=== PATIENT | female | born 1960 | race Caucasian/White ===

== ENCOUNTER → 2025-07-28 | Outpatient (CLI) | payer MEDICARE, BC, SELFPAY ==
--- NOTE | 2025-07-28 12:21 | XR_ITS ---
EXAMINATION: Lumbar spine 3 views TECHNIQUE: AP lateral, lateral lower lumbar spine 3 views Date and time: July 28, 2025, 1306 hours INDICATIONS: Low back pain beginning 1 month ago FINDINGS: Lumbar dextroscoliosis 15 degrees Lumbar fusion and transpedicular L5-S1 with satisfactory alignment Moderate degenerative disc disease above the fusion site especially L4-L5 No acute fracture IMPRESSION: Lumbar fusion L5-S1 with satisfactory alignment Moderate degenerative disc disease above the fusion site, especially L4-L5.
[2025-07-28 13:57] LABS: Basophils # (Auto) 0.0 Thou/mm3 (0.0-0.2); Basophils % (Auto) 1 % (0-2.5); Eosinophils # (Auto) 0.2 Thou/mm3 (0.0-0.5); Eosinophils % (Auto) 2 % (0-10); Hematocrit 33.6 % (36.0-46.0); Hemoglobin 10.9 g/dL (12.0-16.0); Immature Granulocytes Auto 0.02 Thou/mm3 (0.00-0.00); Lymphocytes # (Auto) 1.8 Thou/mm3 (1.0-4.8); Lymphocytes % (Auto) 27 % (10-50); Mean Corpuscular HGB Conc 32.4 g/dl (31.0-37.0); Mean Corpuscular Hemoglobin 30.6 pg (25.0-35.0); Mean Corpuscular Volume 94 fL (80-100); Monocytes # (Auto) 0.6 Thou/mm3 (0.0-0.8); Monocytes % (Auto) 9 % (0-12); Neutrophils # (Auto) 4.1 Thou/mm3 (1.8-7.7); Neutrophils % (Auto) 61 % (37-80); Nucleated Red Blood Cell # 0.00 Thou/mm3 (0.00-0.00); Nucleated Red Blood Cell % 0 /100 WBC (0); Platelet Count 231 Thou/mm3 (140-440); RDW Standard Deviation 47.9 fL (36.4-46.3); Red Blood Count 3.56 Miln/mm3 (4.00-5.20); White Blood Count 6.7 Thou/mm3 (3.6-11.0)
[2025-07-28 14:29] LABS: Alanine Aminotransferase 16 U/L (10-49); Albumin, Serum 4.3 gm/dL (3.4-4.8); Albumin/Globulin Ratio 1.8 (1.2-2.2); Alkaline Phosphatase 73 U/L (46-116); Anion Gap 10 (7-16); Aspartate Amino Transferase 19 U/L (0-34); BUN/Creatinine Ratio 20 Ratio (12-20); Bilirubin,Total 0.6 mg/dL (0.3-1.2); Blood Urea Nitrogen 14 mg/dL (9-23); Calcium 9.5 mg/dL (8.3-10.6); Calcium (Corrected) 9.5 mg/dL (8.5-10.1); Carbon Dioxide 28.5 mMol/L (20.0-31.0); Cardiac Risk Estimate 2.9 RATIO (3.7-5.6); Chloride 108 mMol/L (98-107); Cholesterol 112 mg/dL (132-200); Creatinine (Component) 0.7 mg/dL (0.6-1.3); Free T4 (Free Thyroxine) 1.35 ng/dL (0.89-1.76); Globulin 2.4 gm/dL (2.3-3.5); Glucose 96 mg/dL (74-106); HDL Cholesterol 38 mg/dL (40-60); LDL Cholesterol,Calculated 58 mg/dL (0-130); Osmolality,Calculated 291 (275-295); Potassium 4.6 mMol/L (3.4-5.1); Sodium 146 mMol/L (136-145); Thyroid Stimulating Hormone 1.95 uIU/mL (0.55-4.78); Total Protein 6.7 gm/dL (5.7-8.2); Triglycerides 81 mg/dL (30-150); eGFR > 60 See Note
== END | disposition home or self-care (01) ==
LOC: CDIM 12:13 → COPL 13:17
PROVIDERS: PCP Internal Medicine Hospice and Palliative Medicine; Referring Provider Internal Medicine Hospice and Palliative Medicine; Visit Provider Radiology Diagnostic Radiology
DX: M43.26 Fusion of spine, lumbar region (principal); M51.369 Other intervertebral disc degeneration, lumbar region without mention of lumbar back pain or lower extremity pain; I10 Essential (primary) hypertension; E03.9 Hypothyroidism, unspecified
CPT/HCPCS: 36415; 72100; 80053; 80061; 84439; 84443; 85025

== ENCOUNTER 2025-10-04 16:32 | Inpatient (IN) | payer MEDICARE, BC, SELFPAY ==
[2025-10-04] VITALS (7 sets, daily range): BP systolic 92–167; BP diastolic 57–90; PULSE 77–85; RESP 15–20; TEMP 36.2–36.8; O2SAT 97–100; BMI 41.0
--- NOTE | 2025-10-04 18:19 | EDNOTE_ITS ---
ED SOB =RME/HPI General Chief Complaint: Shortness of Breath/Dyspnea Stated Complaint: SOB, DIZZY, WEAK LEGS, HOLLEY; CHEST PAIN YESTERDAY Time Seen by Provider: 10/04/25 18:20 Arrival date/time: 10/04/25 16:32 RME / HPI RME / HPI Narrative: Dr. Chacon?s Main ED Evaluation: 65yo female with a history of aortic valve replacement (2008), HTN, HLD presents to the ED for a chief complaint of shortness of breath x 2-3 days. Of note, patient has been here ~2 hours prior to my evaluation. Patient states she started having general malaise/weakness, shortness of breath, dizziness, and a headache over the last 2-3 days. Denies any fever, chills, cough, N/V, or any other associated symptoms. Patient does take Coumadin 12.5mg daily. Denies any recent medication changes. Student Truck Driver is Dr. Muñoz. NKA. Related Data Home Medications ?Medication ?Instructions ?Recorded ?Confirmed estropipate 0.75 mg tablet 0.75 mg PO QDAY ##0 4 09/18/19 metoprolol succinate 50 mg 50 mg PO QDAY ##0 06/15/14 09/18/19 tablet,extended release 24 hr (Toprol XL) warfarin 7.5 mg tablet (Coumadin) 12.5 mg PO BID #0 ta bs 06/15/14 09/18/19 furosemide 40 mg tablet 40 mg PO QDAY 09/18/1909/18 losartan 50 mg tablet 50 mg PO QDAY 09/18/1909/18 potassium chloride 10 mEq 10 meq PO QDAY 09/18/190 03/02 tablet,extended release simvastatin 40 mg tablet 40 mg PO QPM 09/18/19 Allergies Allergy/AdvReac Type Severity Reaction Status Date / Time No Known Allergies Allergy Verified 10/04/25 16:35 Review of Systems Review of Systems Systems Reviewed: All systems reviewed, normal except as documented Past Medical History Past Medical History CARDIAC: Positive Cardiac Disorders, Hypercholesterolemia, Congestive Heart Failure, Valvular Heart Disease and Hypertension RESPIRATORY: Negative Chronic Obstructive Pulmonary Disease (COPD) GENITOURINARY: Negative Renal Disease ENDOCRINE: Negative Diabetes Mellitus Type 1 or Diabetes Mellitus Type 2 Surgical History SURGICAL: Positive Valve Replacement Social History SMOKING STATUS: Never smoker ED Exam Narrative Physical exam: Generally patient is alert oriented x 3 in no obvious distress, heart regular rate and rhythm with loud auscultated click at the mechanical heart valve, lungs clear to auscultation equal bilaterally, abdomen is obese soft nontender, rectal exam showed no gross blood melanotic stool guaiac positive. Neurologic exam shows no focal motor deficits with Severo Coma Scale 15, skin is cool pale and dry Course Course Course Narrative: CXR is ordered for determining the etiology of shortness of breath. Quality Measures none Orders Category Date Time Status EKG (ED ONLY) *Do not use* NOW Care 10/04/25 18:34 Completed Transfuse,blood/blood products NOW Care 10/04/25 19:41 Active EKG (ED Only) Stat Exams 10/04/25 18:34 Draft XR chest 1V portable Stat Exams 10/04/25 18:34 Completed BNP [B-Type Natriuretic Peptide] Stat Lab 10/04/25 18:50 Completed CBC Stat Lab 10/04/25 18:50 Completed CMP [Comprehensive Metabolic Panel] Stat Lab 10/04/25 18:50 Completed PT [Prothrombin Time with INR] Stat Lab 10/04/25 18:50 Completed Troponin I Stat Lab 10/04/25 18:50 Completed prbc [Red Blood Cells] Stat Lab 10/04/25 19:41 Ordered prbc [Red Blood Cells] Urgent Lab 10/04/25 19:42 Ordered Vital Signs Vital signs: Vital Signs Temperature 98.3 F 10/04/25 17:16 Pulse Rate 83 10/04/25 17:16 Respiratory Rate 18 10/04/25 17:16 Blood Pressure 92/57 L 10/04/25 17:16 Pulse Oximetry (%) 98 10/04/25 17:16 Oxygen Delivery Method Room Air 10/04/25 17:16 Shortness of Breath / Dyspnea MDM Narrative MDM Narrative:: Scribe Attestation: 10/04/25 Gayla Almonte am scribing for and in the presence of Dr. Chacon. I interpreted all labs. 2 months ago the patient's hemoglobin was 11 and today is 4.0. Patient will be typed and crossed and transfused with 4 units of packed RBCs. INR is 4.2. Patient is on 12.5 mg of Coumadin once a day because of impact chemical heart valve. She is not actively bleeding at this time. Patient will need an EGD while in the hospital here. Troponin is not elevated. There is no electrolyte abnormality. BNP is only slightly elevated. Case was discussed with the hospitalist and the patient required admission to the hospital for further treatment and evaluation. Patient data External records reviewed:: [facility] previous records (Per chart review, patient was seen here on 05/05/23 for leg pain.) Clinical information provided by:: patient Social determinants that could affect healthcare access:: none Patient has the following chronic illnesses:: aortic valve replacement (2008), HTN, HLD How is presenting disease/condition affected by chronic disease/condition?: exacerbated by Evaluation data The following diagnostics were reviewed and interpreted by me:: lab results, radiology exam(s) and EKG tracing(s) Lab and/or radiology exams considered but not ordered:: none Interpretation Summary: [place] [facility] Report Signed Patient: DELVIS MARTINEZ Record#: [id number] Birthdate: 1960 Age/Sex: 65 / F Location: [facility] Attending Dr: Ordering Physician: Maurice Chacon DO Date of Service: 10/04/25 Procedure(s): XR chest 1V portable Accession Number(s): [id number] cc: Bimal Paredes MD; NO PRIMARY/FAMILY,PHYSICIAN; Maurice Chacon DO~ EXAMINATION: AP chest single view TECHNIQUE: AP portable upright chest single view Date and time: October 04, 2025, 1835 hours, comparison July 21, 2020 INDICATIONS: Acute chest pain today. FINDINGS: Mild enlargement cardiac contour Median sternotomy wires. No lobar pneumonia or pulmonary edema. Moderate osteopenia IMPRESSION: No lobar pneumonia or pulmonary edema Dictated By: Bimal Paredes MD Signed By: <Electronically signed by Bimal Paredes MD in OV> 10/04/25 1844 Medications / Prescriptions Medications or Prescriptions considered but not ordered:: none Medication administrations:: see above, if any Consultations Consultation(s) initiated? (list below): Yes Diagnosis Shortness of Breath Differential Diagnosis: other (See MDM) Most likely diagnosis given after review of the tests above:: see clinical impression below Admission Indicated Admission indicated?: indicated Admission Request Was there a request for admission?: Yes Admission Attestation Admission request attestation: Discussed case with [] from Hospitalist service regarding admission. Discussed patients ED course, exam findings, labs, and radiology results. The Hospitalist [agrees,declines] to accept the patient for admission. Disposition Plan Disposition Plan: Admit Critical Care Time Critical Care Time Critical Care Time: Yes Total Critical Care Time (min.): 35 Attestation: Excluding other billable procedures Discharge Plan Plan Patient Disposition: Admit Acute Care w/in Hospital Prescriptions/Referrals Prescriptions/Med Rec: No Action metoprolol succinate [Toprol XL] 50 MG tablet extended release 24 hr 50 mg PO QDAY Qty: 0 warfarin [Coumadin] 7.5 MG tablet 12.5 mg PO BID Qty: 0 estropipate 0.75 MG tablet 0.75 mg PO QDAY Qty: 0 furosemide 40 mg Tablet 40 mg PO QDAY potassium chloride 10 mEq Tablet Extended Release 10 meq PO QDAY losartan 50 mg Tablet 50 mg PO QDAY simvastatin 40 mg Tablet 40 mg PO QPM Referrals: No Primary/Family,Physician [Primary Care Provider] - In 1 week Problem List Clinical Impression: Dyspnea, Weakness, Severe anemia, Warfarin-induced coagulopathy, Upper gastrointestinal bleed Patient/Caregiver Discharge Instructions Print Language: American Stand Alone Forms: [employer] Award Info., Patient Portal Info Letter
--- NOTE | 2025-10-04 18:34 | EKG_ITS ---
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
--- NOTE | 2025-10-04 18:34 | XR_ITS ---
EXAMINATION: AP chest single view TECHNIQUE: AP portable upright chest single view Date and time: October 04, 2025, 1835 hours, comparison July 21, 2020 INDICATIONS: Acute chest pain today. FINDINGS: Mild enlargement cardiac contour Median sternotomy wires. No lobar pneumonia or pulmonary edema. Moderate osteopenia IMPRESSION: No lobar pneumonia or pulmonary edema
[2025-10-04 19:10] LABS: Basophils # (Auto) 0.0 Thou/mm3 (0.0-0.2); Basophils % (Auto) 0 % (0-2.5); Eosinophils # (Auto) 0.1 Thou/mm3 (0.0-0.5); Eosinophils % (Auto) 1 % (0-10); Immature Granulocytes Auto 0.09 Thou/mm3 (0.00-0.00); Lymphocytes # (Auto) 1.6 Thou/mm3 (1.0-4.8); Lymphocytes % (Auto) 20 % (10-50); Mean Corpuscular HGB Conc 30.8 g/dl (31.0-37.0); Mean Corpuscular Hemoglobin 32.8 pg (25.0-35.0); Mean Corpuscular Volume 107 fL (80-100); Monocytes # (Auto) 0.6 Thou/mm3 (0.0-0.8); Monocytes % (Auto) 8 % (0-12); Neutrophils # (Auto) 5.5 Thou/mm3 (1.8-7.7); Neutrophils % (Auto) 70 % (37-80); Nucleated Red Blood Cell # 0.04 Thou/mm3 (0.00-0.00); Nucleated Red Blood Cell % 1 /100 WBC (0); Platelet Count 221 Thou/mm3 (140-440); RDW Standard Deviation 79.2 fL (36.4-46.3); Red Blood Count 1.22 Miln/mm3 (4.00-5.20); White Blood Count 7.9 Thou/mm3 (3.6-11.0)
[2025-10-04 19:14] LABS: Hematocrit 13.0 % (36.0-46.0); Hemoglobin 4.0 g/dL (12.0-16.0)
[2025-10-04 19:32] LABS: INR 4.2 (0.9-1.3)
[2025-10-04 19:34] LABS: Alanine Aminotransferase 19 U/L (10-49); Albumin, Serum 3.3 gm/dL (3.4-4.8); Albumin/Globulin Ratio 1.6 (1.2-2.2); Alkaline Phosphatase 50 U/L (46-116); Anion Gap 9 (7-16); Aspartate Amino Transferase 17 U/L (0-34); BUN/Creatinine Ratio 37 Ratio (12-20); Bilirubin,Total 0.3 mg/dL (0.3-1.2); Blood Urea Nitrogen 26 mg/dL (9-23); Calcium 8.7 mg/dL (8.3-10.6); Calcium (Corrected) 9.3 mg/dL (8.5-10.1); Carbon Dioxide 24.8 mMol/L (20.0-31.0); Chloride 108 mMol/L (98-107); Creatinine (Component) 0.7 mg/dL (0.6-1.3); Estimated Creatinine Clearance 109.0 mL/min (>60); Globulin 2.1 gm/dL (2.3-3.5); Glucose 136 mg/dL (74-106); Osmolality,Calculated 289 (275-295); Potassium 4.0 mMol/L (3.4-5.1); Prothrombin Time 39.8 Seconds (9.0-12.2); Sodium 142 mMol/L (136-145); Total Protein 5.4 gm/dL (5.7-8.2); Troponin I < 0.020 ng/mL (0.0-0.045); eGFR > 60 See Note
[2025-10-04 19:35] LABS: B-Type Natriuretic Peptide 225 pg/mL (0-100)
--- NOTE | 2025-10-04 20:45 | PD.RESCONSUL ---
HPI Data of Consult Requesting Physician: Chantel Izquierdo DO Admitting Provider: Chantel Izquierdo DO Attending Provider: Chantel Izquierdo DO Primary Care Provider: Raúl Loyd MD Consult Narrative cc:: cc: Chantel Izquierdo DO Review of Systems Review of Systems Systems Reviewed: All systems reviewed, normal except as documented Exam Vital Signs Temp Pulse Resp BP Pulse Ox O2 Del Method 98.3 F 77 20 111/74 100 Room Air 10/04/25 20:09 10/04/25 20:09 10/04/25 20:09 10/04/25 20:09 10/04/25 20:09 10/04/25 20:09 Results Labs 10/04/25 18:50 10/04/25 18:50 Labs: Short CBC 10/04/25 Range/Units 18:50 WBC 7.9 (3.6-11.0) Thou/mm3 Hgb 4.0 L* (12.0-16.0) g/dL Hct 13.0 L* (36.0-46.0) % Plt Count 221 (140-440) Thou/mm3 BMP 10/04/25 18:50 Sodium 142 Potassium 4.0 Chloride 108 H Carbon Dioxide 24.8 BUN 26 H Creatinine 0.7 Glucose 136 H Calcium 8.7 Cardiac Enzymes 10/04/25 Range/Units 18:50 Troponin I < 0.020 (0.0-0.045) ng/mL Liver Function 10/04/25 Range/Units 18:50 Total Bilirubin 0.3 (0.3-1.2) mg/dL AST 17 (0-34) U/L ALT 19 (10-49) U/L Alkaline Phosphatase 50 (46-116) U/L Albumin 3.3 L (3.4-4.8) gm/dL Quality Measures Quality Measures none Medications Home Medications and Allergies Home Medications ?Medication ?Instructions ?Recorded ?Confirmed ?Type estropipate 0.75 mg tablet 0.75 mg PO QDAY ##0 06/15/14 09/18/19 History metoprolol succinate 50 mg 50 mg PO QDAY ##0 06/15/14 09/18/19 History tablet,extended release 24 hr (Toprol XL) warfarin 7.5 mg tablet (Coumadin) 12.5 mg PO BID #0 tabs 06/15/14 09/18/19 History furosemide 40 mg tablet 40 mg PO QDAY 09/18/19 09/18/19 History losartan 50 mg tablet 50 mg PO QDAY 09/18/19 09/18/19 History potassium chloride 10 mEq 10 meq PO QDAY 09/18/19 09/18/19 History tablet,extended release simvastatin 40 mg tablet 40 mg PO QPM 09/18/19 09/18/19 History Allergies Allergy/AdvReac Type Severity Reaction Status Date / Time No Known Allergies Allergy Verified 10/04/25 16:35 Visit Medications Acetaminophen (Acetaminophen 325 Mg Tablet) 650 mg PO Q6H PRN PRN Reason: Fever >101.5 Stop: 11/03/25 20:32 Prothrombin Complex Concent ( Human) 3,500 unit/ Sterile Water 100 ml/ IV Miscellaneous Supplies 100 mls @ 400 mls/hr IV X1 ONE Stop: 10/04/25 20:55 Ondansetron HCl (Ondansetron Inj 2 Mg/Ml Inj 2 Ml) 4 mg IVP Q6H PRN; Protocol PRN Reason: NAUSEA OR VOMITING Stop: 11/03/25 20:32 Pantoprazole Sodium (Pantoprazole 40 Mg Tablet) 40 mg PO Q12HR KIYA Stop: 11/03/25 20:59
--- NOTE | 2025-10-04 21:06 | PD.RESHP ---
Documentation for date of: 10/04/25 [facility] History of Present Illness History of present illness: Ms. Schilling is a 65-year-old female with past medical history significant for hypertension, hyperlipidemia, hypothyroidism, mechanical valve replacement on Coumadin presented to the ED complaining of fatigue, shortness of breath, dizziness and generalized weakness since . Patient denies any recurrent chest pain, palpitation or syncopal episodes. Patient denies orthopnea or PND. Patient states she had a mechanical valve replaced with Dr. Su in [address] 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 Patient is been taking Coumadin since 2008 and does weekly INR checks at home. Patient reports her INR on Sunday was 1.2 typically she checks in with Dr. Muñoz who gives her an extra dose of warfarin when her INR is between 1.2-1.4 however on Sunday she did not connect with her rubber compounder and decided on her own to take an extra 5 mg of Coumadin. Patient states last weekend she did notice to dark bowel movements which she attributed to her diet and thought maybe it was something she ate. Yesterday patient states she also had an episode of pressure-like chest pain which lasted approximately 5 minutes and external rubbing resolved the pain and it did not recur. The chest pain did nto reoccur and did not radiate anywhere, denies any palpitations however since last she was feeling shortness of breath with generalized weakness. Patient reports she did have an episode of low hemoglobin approximately around 6.8 but did not require any blood transfusion however PT did get endoscopy, colonoscopy and capsule endoscopy done over the summer in [facility] with Dr. Schultz and the capsule endoscopy in [place]. Patient cannot recall if it was on the endoscopy or colonoscopy but a small non bleeding tear was found which was found to be stable and no intervention was needed. Patient states it was just managed conservatively. Patient denies any previous history of melena, hematochezia or hematemesis. Patient is very compliant with all her doctors appointment as well as with her medications patient is also prescribed Lasix 40 mg as needed for lower extremity edema. Pt denies any abdominal pain, denies any NSAID use, denies diarrhea or constipation. ED course: In the ED patient's initial blood pressure was 92/57, pulse 83, respirations 18 and patient was saturating on room air and remained afebrile Labs are significant for hemoglobin 4.0, hematocrit 13.0, MCV 107, MCHC 30.8, BUN 26, glucose 136, BNP 225 PT 39.8, INR 4.2 EKG is sinus rhythm with no acute ST or T wave changes, QTc is 429 Chest x-ray is within normal limits In the ED type and screen is done and 4 units of PRBC is ordered PMH: hypertension, hyperlipidemia, hypothyroidism, valvular heart disease PSH: Back surgery, hysterectomy, mechanical valve replaced SH: Denies tobacco, alcohol or illicit drug use Home Meds: Aspirin 81 mg, losartan 50 mg, metoprolol 50 mg, levothyroxine 88 mcg, Lasix 40 mg as needed, ezetimibe 10mg, atorvastatin 20 mg, warfarin 12.5 mg Review of Systems Review of Systems Systems Reviewed: All systems reviewed, normal except as documented Exam Vital Signs Temp Pulse Resp BP Pulse Ox O2 Del Method 98.3 F 77 20 111/74 100 Room Air 10/04/25 20:09 10/04/25 20:09 10/04/25 20:09 10/04/25 20:09 10/04/25 20:09 10/04/25 20:09 Narrative Exam GENERAL: A&Ox3, Awake, obese female, pleasant and Not in acute distress NEURO: no focal neurological deficits noted HEENT: Atraumatic, Normocephalic. mucous membranes moist. Eyes open, symmetrical, & clear HEART: Normal Heart Sounds, systolic mechanical murmur heard LUNGS: Clear to auscultation with no wheezing or crackles. ABDOMEN: soft, non-distended, non-tender, bowel sounds heard, no guarding or rebound tenderness SKIN: No Rash or ecchymoses, generalized Pallor noted EXTREMITIES: 2+ pitting edema, no tenderness, able to move all 4 extremities, pedal pulses palpated Results: Labs 10/04/25 18:50 10/04/25 18:50 Labs: Short CBC 10/04/25 Range/Units 18:50 WBC 7.9 (3.6-11.0) Thou/mm3 Hgb 4.0 L* (12.0-16.0) g/dL Hct 13.0 L* (36.0-46.0) % Plt Count 221 (140-440) Thou/mm3 BMP 10/04/25 18:50 Sodium 142 Potassium 4.0 Chloride 108 H Carbon Dioxide 24.8 BUN 26 H Creatinine 0.7 Glucose 136 H Calcium 8.7 Cardiac Enzymes 10/04/25 Range/Units 18:50 Troponin I < 0.020 (0.0-0.045) ng/mL Liver Function 10/04/25 Range/Units 18:50 Total Bilirubin 0.3 (0.3-1.2) mg/dL AST 17 (0-34) U/L ALT 19 (10-49) U/L Alkaline Phosphatase 50 (46-116) U/L Albumin 3.3 L (3.4-4.8) gm/dL Quality Measures Quality Measures none Advance care planning discussed with:: patient Medications Home Medications and Allergies Home Medications ?Medication ?Instructions ?Recorded ?Confirmed ?Type estropipate 0.75 mg tablet 0.75 mg PO QDAY ##0 06/15/14 09/18/19 History metoprolol succinate 50 mg 50 mg PO QDAY ##0 06/15/14 09/18/19 History tablet,extended release 24 hr (Toprol XL) warfarin 7.5 mg tablet (Coumadin) 12.5 mg PO BID #0 tabs 06/15/14 09/18/19 History furosemide 40 mg tablet 40 mg PO QDAY 09/18/19 09/18/19 History losartan 50 mg tablet 50 mg PO QDAY 09/18/19 09/18/19 History potassium chloride 10 mEq 10 meq PO QDAY 09/18/19 09/18/19 History tablet,extended release simvastatin 40 mg tablet 40 mg PO QPM 09/18/19 09/18/19 History Allergies Allergy/AdvReac Type Severity Reaction Status Date / Time No Known Allergies Allergy Verified 10/04/25 16:35 Visit Medications Acetaminophen (Acetaminophen 325 Mg Tablet) 650 mg PO Q6H PRN PRN Reason: Fever >101.5 Stop: 11/03/25 20:32 Prothrombin Complex Concent ( Human) 3,500 unit/ Sterile Water 100 ml/ IV Miscellaneous Supplies 100 mls @ 400 mls/hr IV X1 ONE Stop: 10/04/25 20:55 Ondansetron HCl (Ondansetron Inj 2 Mg/Ml Inj 2 Ml) 4 mg IVP Q6H PRN; Protocol PRN Reason: NAUSEA OR VOMITING Stop: 11/03/25 20:32 Pantoprazole Sodium (Pantoprazole 40 Mg Tablet) 40 mg PO Q12HR KIYA Stop: 11/03/25 20:59 Assessment & Plan Plan Ms. Schilling is a 65-year-old female with past medical history significant for hypertension, hyperlipidemia, hypothyroidism, mechanical valve replacement on Coumadin presented to the ED complaining of fatigue, shortness of breath, dizziness and generalized weakness since . Patient is admitted to the hospital for GI bleed requiring blood transfusions. #GI bleed, likely upper -Patient reports 2 episodes of melena last weekend, in the ED LOLY was melanotic and FOBT positive -Patient reports shortness of breath, fatigue, dizziness and generalized weakness since -Hemoglobin on admission is 4.0 and hematocrit 13.0 Plan: -4 units PRBC ordered, if patient requires additional transfusion patient will need FFP and platelets -type and scree, Transfusion orders, post transfusion H&H -Hold warfarin and any anticoagulation or antiplatelet including aspirin -GI consulted, patient will get EGD tomorrow -N.p.o. after midnight #Supratherapeutic INR #Warfarin induced coagulopathy #Valvular heart disease s/p mechanical valve replace #Lower extremity edema - Patient had mechanical valve replaced [place] [address] Su, and follows Dr. Muñoz closely -Patient takes warfarin 12.5 mg daily and checks INR weekly -On admission patient's PTT is 39.8 and INR 4.2 -On physical examination patient is on room air saturating above 92%, denies orthopnea or PND but does have 2+ pitting edema Plan: -Will hold warfarin -PCC (prothrombin complex concentrate 3,500 units given x 1) -Repeat INR formorning labs ordered -Lasix 40 mg x 1 ordered after 2 units of pRBC transfusion #Primary Hypertension -On initial presentation patient was hypotensive with blood pressure of 92/57 -Holding patient's home metoprolol and losartan and due to soft blood pressure Plan: - Resume home antihypertensive meds when able #Hyperlipidemia -Patient takes atorvastatin 20 mg and ezetimibe 10mg - Lipid panel ordered for a.m. labs #Hypothyroidism -Patient takes levothyroxine 88 mcg -Resumed home med -Ordered TSH for a.m. labs Health Maintenance Disposition: telemetry for GI bleed DVT Prophylaxis: SCD QSHIFT GI Prophylaxis: Pantoprozol-40 IV BID Diet: NPO after midnight Lines: Peripheral lines Code status: Full Assessment and plan discussed with my attending physician Dr. Felecia Garcia (PGY-2)- Internal medicine resident Attending Provider Attestation/Addendum IChantel DO, attest that I was physically present for the toney portions of the service and evaluated the patient with the resident and I reviewed and discussed the case with the resident and agree with the resident's findings and plans of care as documented above Patient is a 65-year-old female with past medical history of hypertension, aortic stenosis status post TAVR, hypothyroidism, hyperlipidemia, chronic warfarin use who presented to the ED with worsening shortness of breath, generalized weakness and lightheadedness that began about 3 days ago. Patient states that her granddaughter had noticed that she had worsening pallor with her associated symptoms that prompted her to come to the ED. Patient states that she has been unable to complete her activities of daily living due to worsening shortness of breath and lightheadedness. She also reported some mild pressure-like chest pain over the weekend. Patient takes Coumadin due to her aortic valve replacement. She denies any history of GI bleeds in the past. However, her last INR checked on Sunday was 1.2 during which she took an extra dose of Coumadin as her rubber compounder would usually recommend. She then noticed that she had some dark stool over the weekend. She states that she had an endoscopy, colonoscopy and pill endoscopy this past summer at [place] during which she was told that she had a small blood vessel tear, but no further interventions or changes in medications were recommended. Patient denies taking any NSAIDs. She denies any syncope at home. Upon arrival to the ED, patient was noted to have a hemoglobin of 4.0 and an INR of 4.2. She states she is feeling okay at rest, but has obvious conjunctival pallor. She denies any abdominal pain, shortness of breath, fevers, chills, diarrhea at this time. Will admit to telemetry for further workup and medical management of supratherapeutic INR and GI bleed. Will give PCC to reverse INR. Will consult cardiology and GI. Will start Protonix 40mg IV BID andl keep n.p.o. at this time in anticipation of EGD tomorrow. Will transfuse 4 units of PRBCs at this time and monitor closely volume status. Will order a dose of Lasix in between blood transfusions due to concern for fluid overload. She is noted to have 1+ pitting edema in bilateral lower extremities, while patient states this is much improved from her baseline. Will f/u with posttransfusion H/H.
[2025-10-04] MEDS: PANTOPRAZOLE 40 MG TABLET PO (21:20)
[2025-10-04 21:51] LABS: Path Review Blood Smear Sent to Pathologist
--- NOTE | 2025-10-04 23:47 | PD.IMCONS ---
HPI Data of Consult Requesting Physician: Chantel Izquierdo DO Primary Care Provider: Raúl Loyd MD Consult Narrative Reason for consult: Melena H/H 4.0 13.0 pro time INR 4.2 History of present illness: 65-year-old female presented the hospital with fatigue shortness of breath was found to have a hemoglobin hematocrit of 4.0 and hematocrit of 13.0 with a platelet count 1 21,000 Pro time INR 4.2 Patient does have a mechanical valve surgical intervention [address] [place] [address] Su Patient has a history of essential hypertension hyperlipidemia hypothyroidism as well She did have dark melanotic stools last week she had a pro time INR last week of 1.2 Dr. Muñoz her metalizing machine operator automatic told her to give an extra 5 mg of Coumadin but she took that only 1 time She had a complete GI workup done last year by Dr. Schultz in [place] had a negative upper endoscopy and colonoscopy and an active capsule endoscopy in [place] cc:: cc: Chantel Izquierdo DO Review of Systems Review of Systems Systems Reviewed: All systems reviewed, normal except as documented Past Medical History Surgical History OTHER SURGICAL HX: As in the history of present illness Meds Home Medications and Allergies Home Medications ?Medication ?Instructions ?Recorded ?Confirmed ?Type estropipate 0.75 mg tablet 0.75 mg PO QDAY ##0 06/15/14 09/18/19 History metoprolol succinate 50 mg 50 mg PO QDAY ##0 06/15/14 09/18/19 History tablet,extended release 24 hr (Toprol XL) warfarin 7.5 mg tablet (Coumadin) 12.5 mg PO BID #0 tabs 06/15/14 09/18/19 History furosemide 40 mg tablet 40 mg PO QDAY 09/18/19 09/18/19 History losartan 50 mg tablet 50 mg PO QDAY 09/18/19 09/18/19 History potassium chloride 10 mEq 10 meq PO QDAY 09/18/19 09/18/19 History tablet,extended release simvastatin 40 mg tablet 40 mg PO QPM 09/18/19 09/18/19 History Allergies Allergy/AdvReac Type Severity Reaction Status Date / Time No Known Allergies Allergy Verified 10/04/25 16:35 Exam Vital Signs Temp Pulse Resp BP Pulse Ox O2 Del Method 97.2 F 85 17 133/89 H 97 Room Air 10/04/25 22:41 10/04/25 22:41 10/04/25 22:41 10/04/25 22:41 10/04/25 22:41 10/04/25 22:41 Constitutional Comments: Chronically ill-appearing Routine Respiratory Exam Comments: Normal to auscultation Routine Abdominal Exam Comments: Soft nontender okay Results Labs 10/05/25 12:49 10/05/25 12:49 Labs: Short CBC 10/04/25 Range/Units 18:50 WBC 7.9 (3.6-11.0) Thou/mm3 Hgb 4.0 L* (12.0-16.0) g/dL Hct 13.0 L* (36.0-46.0) % Plt Count 221 (140-440) Thou/mm3 BMP 10/04/25 18:50 Sodium 142 Potassium 4.0 Chloride 108 H Carbon Dioxide 24.8 BUN 26 H Creatinine 0.7 Glucose 136 H Calcium 8.7 Cardiac Enzymes 10/04/25 Range/Units 18:50 Troponin I < 0.020 (0.0-0.045) ng/mL Liver Function 10/04/25 Range/Units 18:50 Total Bilirubin 0.3 (0.3-1.2) mg/dL AST 17 (0-34) U/L ALT 19 (10-49) U/L Alkaline Phosphatase 50 (46-116) U/L Albumin 3.3 L (3.4-4.8) gm/dL Assessment and Plan Additional Assessment & Plan Additional Plan: # Anemia blood loss Agree with blood transfusion Consent obtained for fiberoptic esophagogastroduodenoscopy possible therapeutic intervention under intravenous moderate sedation scheduled no need, for, colonoscopy as she had an active colonoscopy last year other medical problems include Mechanical heart valve on Coumadin Hyperlipidemia Hypothyroidism Essential hypertension Previous history of GI bleed Thank you very much for the opportunity to participate in care of this patient
[2025-10-05] VITALS (32 sets, daily range): BP systolic 96–176; BP diastolic 59–95; PULSE 59–98; RESP 9–96; TEMP 36.1–37.2; O2SAT 93–100
--- NOTE | 2025-10-05 00:33 | PC.NURSE ---
spoke to Indira, radiation control technician pharmacist, about verifying right volume total for [employer], per order states sterile water is a total of 100ml but when reconstituting total comes out to 140ml. pharmacist reviewed order and made change. plan of care onoing.
[2025-10-05] MEDS: FUROSEMIDE INJ 10 MG/ML 4ML VIAL 40 MG IVP (04:37)
[2025-10-05] MEDS: LEVOTHYROXINE SODIUM 88 MCG TABLET PO (06:11)
[2025-10-05 06:20] LABS: Basophils # (Auto) 0.0 Thou/mm3 (0.0-0.2); Basophils % (Auto) 0 % (0-2.5); Eosinophils # (Auto) 0.1 Thou/mm3 (0.0-0.5); Eosinophils % (Auto) 1 % (0-10); Immature Granulocytes Auto 0.18 Thou/mm3 (0.00-0.00); Lymphocytes # (Auto) 1.9 Thou/mm3 (1.0-4.8); Lymphocytes % (Auto) 24 % (10-50); Mean Corpuscular HGB Conc 32.8 g/dl (31.0-37.0); Mean Corpuscular Hemoglobin 31.2 pg (25.0-35.0); Mean Corpuscular Volume 95 fL (80-100); Monocytes # (Auto) 0.7 Thou/mm3 (0.0-0.8); Monocytes % (Auto) 9 % (0-12); Neutrophils # (Auto) 4.8 Thou/mm3 (1.8-7.7); Neutrophils % (Auto) 63 % (37-80); Nucleated Red Blood Cell # 0.00 Thou/mm3 (0.00-0.00); Nucleated Red Blood Cell % 0 /100 WBC (0); Platelet Count 197 Thou/mm3 (140-440); RDW Standard Deviation 67.7 fL (36.4-46.3); Red Blood Count 1.99 Miln/mm3 (4.00-5.20); White Blood Count 7.7 Thou/mm3 (3.6-11.0)
[2025-10-05 06:25] LABS: Hematocrit 18.9 % (36.0-46.0)
[2025-10-05 06:26] LABS: Hemoglobin 6.2 g/dL (12.0-16.0)
[2025-10-05 06:50] LABS: Alanine Aminotransferase 19 U/L (10-49); Albumin, Serum 3.4 gm/dL (3.4-4.8); Albumin/Globulin Ratio 1.6 (1.2-2.2); Alkaline Phosphatase 47 U/L (46-116); Anion Gap 9 (7-16); Aspartate Amino Transferase 19 U/L (0-34); BUN/Creatinine Ratio 34 Ratio (12-20); Bilirubin,Total 0.5 mg/dL (0.3-1.2); Blood Urea Nitrogen 24 mg/dL (9-23); Calcium 8.5 mg/dL (8.3-10.6); Calcium (Corrected) 9.0 mg/dL (8.5-10.1); Carbon Dioxide 27.2 mMol/L (20.0-31.0); Chloride 109 mMol/L (98-107); Creatinine (Component) 0.7 mg/dL (0.6-1.3); Estimated Creatinine Clearance 109.0 mL/min (>60); Globulin 2.1 gm/dL (2.3-3.5); Glucose 124 mg/dL (74-106); Magnesium 1.9 mg/dL (1.6-2.6); Osmolality,Calculated 293 (275-295); Phosphorous 3.2 mg/dL (2.4-5.1); Potassium 4.2 mMol/L (3.4-5.1); Sodium 145 mMol/L (136-145); Thyroid Stimulating Hormone 4.68 uIU/mL (0.55-4.78); Total Protein 5.5 gm/dL (5.7-8.2); eGFR > 60 See Note
[2025-10-05 09:01] LABS: INR 1.5 (0.9-1.3); Prothrombin Time 15.4 Seconds (9.0-12.2)
--- NOTE | 2025-10-05 09:45 | ESPR_ITS ---
<Statement entered by Annemarie Nevarez MD - 10/09/25 08:35> I reviewed above note and agree with findings and plans. I have also personally examined the patient with medicine team and went over assessment and plan with medical team including college intern and resident physician. <Statement entered by Sarah Wayne MD - 10/05/25 21:34> In summary: She is a 65-year-old female with a history of mechanical valve replacement on chronic anticoagulation who presented with severe symptomatic anemia secondary to a suspected upper gastrointestinal bleed. On admission, she was found to have a hemoglobin of 4.0 and a supratherapeutic INR of 4.2. She was stabilized with a 4-unit packed red blood cell transfusion and 3,500 units of Prothrombin Complex Concentrate, which successfully corrected her INR to 1.5. To manage fluid status during the transfusion, she also received 40 mg of Lasix. She underwent an EGD today, which revealed no evidence of an active bleed. Following these results, GI has recommended a capsule endoscopy to be performed on an outpatient basis to further investigate the source of her melena and severe anemia. Cardiology has been consulted regarding her mechanical valve and recommends following the GI transition plan; once she is hemodynamically stable and the bleeding is deemed controlled, she is cleared for discharge on her home warfarin dose. She is proficient in self-checking her INR at home and will continue to coordinate her anticoagulation management with Cardiology. She remains stable at this time, and plans are being finalized for her transition to home with close outpatient follow-up. I?ve reviewed the note and agree with this assessment and plan, with the exceptions outlined above. I personally went over the labs, imaging, home medications, and prior records, and examined the patient. The case was also reviewed with the attending physician. Please note: this document was transcribed using voice recognition technology; minor inaccuracies may be present. Sarah Wayne DO PGY II Documentation for date of: 10/05/25 Subjective Subjective Interval history: Ms. Schilling is a 65-year-old female with past medical history significant for hypertension, hyperlipidemia, hypothyroidism, aortic mechanical valve replacement on Coumadin presented to the ED complaining of fatigue, shortness of breath, dizziness and generalized weakness since (10/01). Patient states she had a mechanical valve replaced with Dr. Su in [address] Muñoz as her hammersmith helper. Patient is been taking Coumadin since 2008 and does weekly INR checks at home. Patient reports her INR on Sunday was 1.2 typically she checks in with Dr. Muñoz who gives her an extra dose of warfarin when her INR is between 1.2-1.4 however on Sunday she did not connect with her hammersmith helper and decided on her own to take an extra 5 mg of Coumadin. Patient states last weekend (10/03~10/04) she did notice to dark bowel movements which she attributed to her diet and thought maybe it was something she ate. Yesterday patient states she also had an episode of pressure-like chest pain which lasted approximately 5 minutes and external rubbing resolved the pain and it did not recur. Since last she was feeling shortness of breath with generalized weakness. Patient reports she did have an episode of low hemoglobin approximately around 6.8 but did not require any blood transfusion. Patient did get endoscopy, colonoscopy and capsule endoscopy done over the summer in [facility] with Dr. Schultz and the capsule endoscopy in [place], all of which were inconclusive. Patient denies any previous history of melena, hematochezia or hematemesis. Patient is very compliant with all her doctors appointment as well as with her medications patient is also prescribed Lasix 40 mg as needed for lower extremity edema. Pt denies any abdominal pain, denies any NSAID use, denies diarrhea or constipation. 10/05/25: NAOE. Hgb this morning 7.7 after 4pRBC. VSS. Patient reports feeling a lot better. INR 1.5, subtherapeutic given PCC transfusion, will hold off any anticoagulation for now until we r/o upper GI bleed, plan for EGD today. Exam Vital Signs Temp Pulse Resp BP Pulse Ox O2 Del Method 98.0 F 63 21 H 138/77 H 97 Room Air 10/05/25 08:42 10/05/25 08:42 10/05/25 08:42 10/05/25 08:42 10/05/25 08:42 10/05/25 08:00 Narrative Exam General: Alert, oriented, in no acute distress. HEENT: Normocephalic, atraumatic. Extraocular movements intact. Neck: Supple, no JVD, no lymphadenopathy or thyroid enlargement. Cardiovascular: Regular rate and rhythm. No murmurs, rubs, or gallops. Respiratory: Clear to auscultation bilaterally. No wheezes, rales, or rhonchi. Normal respiratory effort. Abdomen: Soft, nontender, nondistended. No masses or organomegaly. Musculoskeletal: Full range of motion in all extremities. Swollen LE. Skin: Warm, dry, intact. No rashes or lesions. Psychiatric: Calm, cooperative, appropriate mood and affect. Objective Labs 10/05/25 12:49 10/05/25 12:49 Labs: Laboratory Results - last 24 hr 10/04/25 10/04/25 10/05/25 18:50 20:10 05:47 WBC 7.9 7.7 RBC 1.22 L* 1.99 L* Hgb 4.0 L* 6.2 L* D Hct 13.0 L* 18.9 L* MCV 107 H 95 MCH 32.8 31.2 MCHC 30.8 L 32.8 RDW Std Deviation 79.2 H 67.7 H Plt Count 221 197 Neut % (Auto) 70 63 Lymph % (Auto) 20 24 [place] % (Auto) 8 9 Eos % (Auto) 1 1 Baso % (Auto) 0 0 Neut # (Auto) 5.5 4.8 Lymph # (Auto) 1.6 1.9 [place] # (Auto) 0.6 0.7 Eos # (Auto) 0.1 0.1 Baso # (Auto) 0.0 0.0 Immature Gran # (Auto) 0.09 H 0.18 H Absolute Nucleated RBC 0.04 H 0.00 Immature Gran % 1 H 2 H Nucleated RBC % 1 H 0 Smear Path Review Sent to Pathologist PT 39.8 H* INR 4.2 H* Sodium 142 145 Potassium 4.0 4.2 Chloride 108 H 109 H Carbon Dioxide 24.8 27.2 Anion Gap 9 9 BUN 26 H 24 H Creatinine 0.7 0.7 Estim Creat Clear Calc 109.0 109.0 eGFR > 60 > 60 BUN/Creatinine Ratio 37 H 34 H Glucose 136 H 124 H Calculated Osmolality 289 293 Calcium 8.7 8.5 Corrected Calcium 9.3 9.0 Phosphorus 3.2 Magnesium 1.9 Total Bilirubin 0.3 0.5 AST 17 19 ALT 19 19 Alkaline Phosphatase 50 47 Troponin I < 0.020 B-Natriuretic Peptide 225 H Total Protein 5.4 L 5.5 L Albumin 3.3 L 3.4 Globulin 2.1 L 2.1 L Albumin/Globulin Ratio 1.6 1.6 TSH 4.68 Blood Type A Positive Antibody Screen NEGATIVE Crossmatch See Detail Blood Bank Wristband ID Yes 10/05/25 08:12 WBC RBC Hgb Hct MCV MCH MCHC RDW Std Deviation Plt Count Neut % (Auto) Lymph % (Auto) [place] % (Auto) Eos % (Auto) Baso % (Auto) Neut # (Auto) Lymph # (Auto) [place] # (Auto) Eos # (Auto) Baso # (Auto) Immature Gran # (Auto) Absolute Nucleated RBC Immature Gran % Nucleated RBC % Smear Path Review PT 15.4 H D INR 1.5 H Sodium Potassium Chloride Carbon Dioxide Anion Gap BUN Creatinine Estim Creat Clear Calc eGFR BUN/Creatinine Ratio Glucose Calculated Osmolality Calcium Corrected Calcium Phosphorus Magnesium Total Bilirubin AST ALT Alkaline Phosphatase Troponin I B-Natriuretic Peptide Total Protein Albumin Globulin Albumin/Globulin Ratio TSH Blood Type Antibody Screen Crossmatch Blood Bank Wristband ID Quality Measures Quality Measures none Advance care planning discussed with:: patient Assessment & Plan Assessment Current Active Medications: Generic Name Dose Route Start Last Admin Trade Name Freq PRN Reason Stop Dose Admin Acetaminophen 650 mg 10/04/25 20:33 Acetaminophen 325 Mg Tablet PO 11/03/25 20:32 Q6H PRN Fever >101.5 Levothyroxine Sodium 88 mcg 10/05/25 06:00 10/05/25 06:11 Levothyroxine Sodium 88 Mcg Tablet PO 11/04/25 05:59 88 mcg ACBR KIYA Administration Ondansetron HCl 4 mg 10/04/25 20:33 Ondansetron Inj 2 Mg/Ml Inj 2 Ml IVP 11/03/25 20:32 Q6H PRN NAUSEA OR VOMITING Protocol Pantoprazole Sodium 40 mg 10/05/25 09:00 10/05/25 09:21 Pantoprazole Inj 40 Mg Vial IVP 11/04/25 08:59 40 mg BID KIYA Administration Plan Ms. Schilling is a 65-year-old female with past medical history significant for hypertension, hyperlipidemia, hypothyroidism, mechanical valve replacement on Coumadin presented to the ED complaining of fatigue, shortness of breath, dizziness and generalized weakness since . Patient is admitted to the hospital for GI bleed requiring blood transfusions. #GI bleed, likely upper -Patient reports 2 episodes of melena last weekend, in the ED LOLY was melanotic and FOBT positive -Patient reports shortness of breath, fatigue, dizziness and generalized weakness since -Hemoglobin on admission is 4.0 and hematocrit 13.0 Plan: -4 units PRBC ordered (10/04), if patient requires additional transfusion patient will need FFP and platelets -type and scree, Transfusion orders, post transfusion H&H -Hold warfarin and any anticoagulation or antiplatelet including aspirin -GI consulted, patient will get EGD today -N.p.o. after midnight #Supratherapeutic INR #Warfarin induced coagulopathy #Valvular heart disease s/p mechanical valve replace #Lower extremity edema - Patient had mechanical valve replaced [place] [address] Su, and follows Dr. Muñoz closely -Patient takes warfarin 12.5 mg daily and checks INR weekly -On admission patient's PTT is 39.8 and INR 4.2 -On physical examination patient is on room air saturating above 92%, denies orthopnea or PND but does have 2+ pitting edema Plan: -Will hold warfarin -PCC (prothrombin complex concentrate 3,500 units given x 1) -Repeat INR 1.5. -Lasix 40 mg x 1 ordered after 2 units of pRBC transfusion #Primary Hypertension -On initial presentation patient was hypotensive with blood pressure of 92/57 -Holding patient's home metoprolol and losartan and due to soft blood pressure Plan: - Resume home antihypertensive meds when able #Hyperlipidemia -Patient takes atorvastatin 20 mg and ezetimibe 10mg #Hypothyroidism -Patient takes levothyroxine 88 mcg -Resumed home med -TSH 4.68 Health Maintenance Disposition: telemetry for GI bleed DVT Prophylaxis: SCD QSHIFT GI Prophylaxis: Pantoprozol-40 IV BID Diet: NPO after midnight Lines: Peripheral lines Code status: Full Case discussed with my senior resident Dr. Wayne Case discussed with my attending Dr. Geri Almonte, DO PGY 1
[2025-10-05 09:49] LABS: LDH (Lactate Dehydrogenase) 244 U/L (120-246)
[2025-10-05 10:20] LABS: Immature Reticulocyte Fraction 38.7 % (3.0-15.9); Reticulocyte % (Auto) 9.8 % (0.5-1.5); Reticulocyte Absolute Auto 192.5 Biln/L (25.0-75.0); Reticulocyte Hgb Content 33.6 pg (28.0-35.0)
[2025-10-05 13:06] LABS: Hematocrit 23.1 % (36.0-46.0)
[2025-10-05 13:23] LABS: Hemoglobin 7.7 g/dL (12.0-16.0)
[2025-10-05 13:39] LABS: Albumin, Serum 3.2 gm/dL (3.4-4.8); Anion Gap 8 (7-16); BUN/Creatinine Ratio 40 Ratio (12-20); Blood Urea Nitrogen 24 mg/dL (9-23); Calcium 8.3 mg/dL (8.3-10.6); Calcium (Corrected) 8.9 mg/dL (8.5-10.1); Carbon Dioxide 26.8 mMol/L (20.0-31.0); Chloride 108 mMol/L (98-107); Creatinine (Component) 0.6 mg/dL (0.6-1.3); Estimated Creatinine Clearance 127.2 mL/min (>60); Glucose 104 mg/dL (74-106); Osmolality,Calculated 288 (275-295); Phosphorous 3.4 mg/dL (2.4-5.1); Potassium 4.2 mMol/L (3.4-5.1); Sodium 143 mMol/L (136-145); eGFR > 60 See Note
--- NOTE | 2025-10-05 17:51 | ESCONSULT_ITS ---
<Statement entered by Lakia Muñoz MD - 10/07/25 09:53> I personally examined the patient recovery room patient came with GI bleeding hemoglobin dropped 4 g INR ratio was not that high in fact normal 2 days before the admission and she took normal dose plus extra dose but INR ratio slightly elevated GI bleeding is significant patient might have a chronic loss plus acute on top of it we will monitor the patient closely patient may have small bowel bleed will recommend INR ratio when she resumes Coumadin at 2.0 not 2.5. Agree with treatment plan recommendations documented by Dr. Baker PGY2 patient has a mechanical aortic valve most of the time patients do fairly well without anticoagulation but will monitor the situation closely. HPI Data of Consult Patient: known to practice within the last 3 years Consult date: 10/05/25 Requesting Physician: Chantel Izquierdo DO Admitting Provider: Chantel Izquierdo DO Attending Provider: Chantel Izquierdo DO Primary Care Provider: Raúl Loyd MD Consult Narrative Reason for consult: subtherputic warfarin History of present illness: Patient is 65 yr female with PMH of hypertension, hyperlipidemia, hypothyroidism, mechanical valve replacement on Coumadin well known to practice. She presented to ED last night after experiencing fatigue, shortness of breath, dizziness and generalized weakness since . Patient comes to Dr. Muñoz's clinic weekly for INR check and dose adjustments. Most recent INR check on Sep 24, 2025 was 2.8. Since past few weeks she as remained at stable number (goal 2.5) without any changes in dose needed. Patient states that she self checked INR at home which was 1.2. Therefore, took an extra dose of 5mg warfarin. Most recent GI bleed workup was done this past summer. Past saw GI in [place] who did colonoscopy and EGD. Caspsule endoscopy in [place] may have found small non bleeding tear. She endorses melanic stool last weekend. Denies any hematemasis, abdominal pain, denies any NSAID use, diarrhea or constipation. Initial vitals in ED showed low BP 92/57, other vitals normal. Labs were significant for hemoglobin 4.0, hematocrit 13.0, MCV 107, MCHC 30.8, BUN 26, glucose 136, BNP 225. PT 39.8, INR 4.2 EKG showed sinus rhythm with no acute ST or T wave changes, QTc is 429. Chest x-ray is within normal limits. Meds: Nitroglycerin as needed, warfarin 12.5 mg daily, ezetimibe 10 mg daily, levothyroxine 88 mcg, furosemide 40 mg, potassium 10 mEq as needed, metoprolol succinate 50 mg daily, atorvastatin 20 mg daily, aspirin 81 mg daily, ferrous sulfate, losartan 50 mg daily. PMH: hypertension, hyperlipidemia, hypothyroidism, valvular heart disease PSH: Back surgery, hysterectomy, mechanical valve replaced SH: Denies tobacco, alcohol or illicit drug use FamHx: Father unknown, mother unknown cc:: cc: Chantel Izquierdo, Review of Systems Review of Systems ROS Unobtainable: unobtainable due to mental status Narrative Review of Systems: Patient sedated post EGD Exam Vital Signs Temp Pulse Resp BP Pulse Ox O2 Del Method 97.3 F 64 15 134/78 H 95 Room Air 10/05/25 16:00 10/05/25 16:06 10/05/25 16:06 10/05/25 16:00 10/05/25 16:00 10/05/25 16:00 Narrative Exam General: sedated, No acute distress HEENT: NCAT, No JVD noted. Mucosa moist. Pupils are equal and reactive to light bilaterally Cardiovascular: Normal S1 and S2. Regular rate and rhythm. Respiratory: Lungs are clear to auscultation bilaterally. No wheezing or crackles heard. Abdomen: Soft, nontender, not distended, normal bowel sounds. Skin: Warm to touch, dry, no rashes noted Musculoskeletal: No gross injuries. Able to move all 4 extremities. No pitting edema Neuro: in recovery post op, EGD Results Labs 10/05/25 12:49 10/05/25 12:49 Labs: Short CBC 10/04/25 10/05/25 10/05/25 Range/Units 18:50 05:47 12:49 WBC 7.9 7.7 (3.6-11.0) Thou/mm3 Hgb 4.0 L* 6.2 L* D 7.7 L D (12.0-16.0) g/dL Hct 13.0 L* 18.9 L* 23.1 L (36.0-46.0) % Plt Count 221 197 (140-440) Thou/mm3 BMP 10/04/25 10/05/25 10/05/25 18:50 05:47 12:49 Sodium 142 145 143 Potassium 4.0 4.2 4.2 Chloride 108 H 109 H 108 H Carbon Dioxide 24.8 27.2 26.8 BUN 26 H 24 H 24 H Creatinine 0.7 0.7 0.6 Glucose 136 H 124 H 104 Calcium 8.7 8.5 8.3 Cardiac Enzymes 10/04/25 Range/Units 18:50 Troponin I < 0.020 (0.0-0.045) ng/mL Liver Function 10/04/25 10/05/25 10/05/25 Range/Units 18:50 05:47 12:49 Total Bilirubin 0.3 0.5 (0.3-1.2) mg/dL AST 17 19 (0-34) U/L ALT 19 19 (10-49) U/L Alkaline Phosphatase 50 47 (46-116) U/L Albumin 3.3 L 3.4 3.2 L (3.4-4.8) gm/dL Quality Measures Quality Measures none Advance care planning discussed with:: patient Medications Home Medications and Allergies Home Medications ?Medication ?Instructions ?Recorded ?Confirmed ?Type estropipate 0.75 mg tablet 0.75 mg PO QDAY ##0 4 09/18/19 History metoprolol succinate 50 mg 50 mg PO QDAY ##0 06/15/14 09/18/19 History tablet,extended release 24 hr (Toprol XL) warfarin 7.5 mg tablet (Coumadin) 12.5 mg PO BID #0 ta bs 06/15/14 09/18/19 History furosemide 40 mg tablet 40 mg PO QDAY 09/18/1909/18 History losartan 50 mg tablet 50 mg PO QDAY 09/18/1909/18 History potassium chloride 10 mEq 10 meq PO QDAY 09/18/1903/02 History tablet,extended release simvastatin 40 mg tablet 40 mg PO QPM 09/18/19 History Allergies Allergy/AdvReac Type Severity Reaction Status Date / Time No Known Allergies Allergy Verified 10/04/25 16:35 Visit Medications Acetaminophen (Acetaminophen 325 Mg Tablet) 650 mg PO Q6H PRN PRN Reason: Fever >101.5 Stop: 11/03/25 20:32 Levothyroxine Sodium (Levothyroxine Sodium 88 Mcg Tablet) 88 mcg PO ACBR KIYA Stop: 11/04/25 05:59 Last Admin: 10/05/25 06:11 Dose: 88 mcg Ondansetron HCl (Ondansetron Inj 2 Mg/Ml Inj 2 Ml) 4 mg IVP Q6H PRN; Protocol PRN Reason: NAUSEA OR VOMITING Stop: 11/03/25 20:32 Pantoprazole Sodium (Pantoprazole Inj 40 Mg Vial) 40 mg IVP BID KIYA Stop: 11/04/25 08:59 Last Admin: 10/05/25 09:21 Dose: 40 mg Discontinued Medications Furosemide (Furosemide Inj 10 Mg/Ml 4ml Vial) 40 mg IVP X1 ONE Stop: 10/04/25 22:34 Last Admin: 10/05/25 06:44 Dose: Not Given Furosemide (Furosemide Inj 10 Mg/Ml 4ml Vial) 40 mg IVP X1 ONE Stop: 10/05/25 04:32 Last Admin: 10/05/25 04:37 Dose: 40 mg Prothrombin Complex Concent ( Human) 3,500 unit/ Sterile Water 140 ml/ IV Miscellaneous Supplies 140 mls @ 420 mls/hr IV X1 ONE Stop: 10/05/25 01:04 Last Admin: 10/05/25 00:50 Dose: 420 mls/hr Pantoprazole Sodium (Pantoprazole 40 Mg Tablet) 40 mg PO Q12HR [facility] Stop: 11/03/25 20:59 Last Admin: 10/04/25 21:20 Dose: 40 mg Assessment & Plan Plan Patient is 65 yr female with PMH of hypertension, hyperlipidemia, hypothyroidism, mechanical valve replacement on Coumadin well known to practice. She presented to ED last night after experiencing fatigue, shortness of breath, dizziness and generalized weakness since . Patient is well known to Dr. Muñoz's clinic. Found to have subtheraputic INR and admitted for workup of GI bleed. #GI bleed, likely upper #Supratherapeutic INR #Warfarin induced coagulopathy #Valvular heart disease s/p mechanical aortic valve replacement Patient comes to Dr. Muñoz's clinic weekly for INR check and dose adjustments. Most recent INR check on Sep 24, 2025 was 2.8. Since past few weeks. she as remained at stable number (goal 2.5) without any changes in dose needed. Patient states that she self checked INR at home which was 1.2. Therefore, took an extra dose of 5mg warfarin. She takes 12.5mg warfarin. AV [place] [address] Su. INR on admission was 4.2, PTT 39.8. Hb was 4.0, Hct 13. Was given prothrombin complex concentrate 3,500 unitsx1. She has received total of 4 units PRBC since admission -okay to continue holding warfarin -complete GI bleed workup -daily INR -today INR 1.5 -resume warfarin dose at discharge #Primary Hypertension On initial presentation patient was hypotensive with blood pressure of 92/57 Patient takes furosemide 40 mg, metoprolol succinate 50 mg daily, losartan 50 mg daily -resume #Hyperlipidemia -Patient takes atorvastatin 20 mg and ezetimibe 10mg Lipid pannel pending #Hypothyroidism -Patient takes levothyroxine 88 mcg -Resumed home med -TSH 4.68 Primary care team to manage above conditions and ongoing care needs. The patient's management plan was discussed with my attending physician Dr. Muñoz. Silvia Liang, PGY-2
--- NOTE | 2025-10-05 18:15 | SUR.PHASEI ---
pt received from OR in recovery bay 2. pt asleep but responds to voice, breathing unlabored on nc 2l. v/s stable. report received from Elizabeth COTTO.
--- NOTE | 2025-10-05 18:50 | SUR.PHASEI ---
pt awake and alert, breathing unlabored on room air. v/s stable. report called to Jessica COTTO. pt will be transferred to room at this time.
[2025-10-06 01:40] VITALS: BP 133/60; PULSE 65; RESP 16; TEMP 36.4; O2SAT 93
[2025-10-06 04:00] VITALS: BP 144/86; PULSE 67; RESP 34; TEMP 36.2; O2SAT 98
[2025-10-06 04:03] LABS: Basophils # (Auto) 0.0 Thou/mm3 (0.0-0.2); Basophils % (Auto) 1 % (0-2.5); Eosinophils # (Auto) 0.1 Thou/mm3 (0.0-0.5); Eosinophils % (Auto) 2 % (0-10); Hematocrit 26.3 % (36.0-46.0); Immature Granulocytes Auto 0.06 Thou/mm3 (0.00-0.00); Lymphocytes # (Auto) 1.6 Thou/mm3 (1.0-4.8); Lymphocytes % (Auto) 23 % (10-50); Mean Corpuscular HGB Conc 32.7 g/dl (31.0-37.0); Mean Corpuscular Hemoglobin 30.7 pg (25.0-35.0); Mean Corpuscular Volume 94 fL (80-100); Monocytes # (Auto) 0.6 Thou/mm3 (0.0-0.8); Monocytes % (Auto) 8 % (0-12); Neutrophils # (Auto) 4.6 Thou/mm3 (1.8-7.7); Neutrophils % (Auto) 65 % (37-80); Nucleated Red Blood Cell # 0.00 Thou/mm3 (0.00-0.00); Nucleated Red Blood Cell % 0 /100 WBC (0); Platelet Count 177 Thou/mm3 (140-440); RDW Standard Deviation 64.0 fL (36.4-46.3); Red Blood Count 2.80 Miln/mm3 (4.00-5.20); White Blood Count 7.0 Thou/mm3 (3.6-11.0)
[2025-10-06 04:08] LABS: Hemoglobin 8.6 g/dL (12.0-16.0)
[2025-10-06 04:21] LABS: Alanine Aminotransferase 15 U/L (10-49); Albumin, Serum 3.3 gm/dL (3.4-4.8); Albumin/Globulin Ratio 1.8 (1.2-2.2); Alkaline Phosphatase 46 U/L (46-116); Anion Gap 7 (7-16); Aspartate Amino Transferase 18 U/L (0-34); BUN/Creatinine Ratio 21 Ratio (12-20); Bilirubin,Total 0.7 mg/dL (0.3-1.2); Blood Urea Nitrogen 17 mg/dL (9-23); Calcium 8.4 mg/dL (8.3-10.6); Calcium (Corrected) 9.0 mg/dL (8.5-10.1); Carbon Dioxide 27.3 mMol/L (20.0-31.0); Chloride 111 mMol/L (98-107); Creatinine (Component) 0.8 mg/dL (0.6-1.3); Estimated Creatinine Clearance 95.4 mL/min (>60); Globulin 1.8 gm/dL (2.3-3.5); Glucose 110 mg/dL (74-106); Magnesium 1.8 mg/dL (1.6-2.6); Osmolality,Calculated 291 (275-295); Phosphorous 4.3 mg/dL (2.4-5.1); Potassium 4.6 mMol/L (3.4-5.1); Sodium 145 mMol/L (136-145); Total Protein 5.1 gm/dL (5.7-8.2); eGFR > 60 See Note
[2025-10-06] MEDS: LEVOTHYROXINE SODIUM 88 MCG TABLET PO (05:44)
[2025-10-06 07:33] VITALS: PULSE 66; RESP 15; RESP 96
[2025-10-06 08:00] VITALS: BP 134/93; PULSE 59; PULSE 67; RESP 16; TEMP 35.9; O2SAT 95
--- NOTE | 2025-10-06 10:43 | ESDS_ITS ---
<Statement entered by Annemarie Nevarez MD - 10/10/25 12:55> I reviewed above note and agree with findings and plans. I have also personally examined the patient with medicine team and went over assessment and plan with medical team including internal combustion engine assembler and resident physician. <Statement entered by Sarah Wayne MD - 10/06/25 12:56> In summary: She is a 65-year-old female with a history of mechanical valve replacement on chronic anticoagulation who presented with severe symptomatic anemia secondary to a suspected upper gastrointestinal bleed. On admission, she was found to have a hemoglobin of 4.0 and a supratherapeutic INR of 4.2. She was stabilized with a 4-unit packed red blood cell transfusion and 3,500 units of Prothrombin Complex Concentrate, which successfully corrected her INR to 1.5. To manage fluid status during the transfusion, she also received 40 mg of Lasix. She underwent an EGD today, which revealed no evidence of an active bleed. Following these results, GI has recommended a capsule endoscopy to be performed on an outpatient basis to further investigate the source of her melena and severe anemia. Cardiology has been consulted regarding her mechanical valve and recommends following the GI transition plan; once she is hemodynamically stable and the bleeding is deemed controlled, she is cleared for discharge on her home warfarin dose. She is proficient in self-checking her INR at home and will continue to coordinate her anticoagulation management with Cardiology. She remains stable at this time, hemoglobin appears stable, and goal will be discharge to home with close outpatient follow-up. I?ve reviewed the note and agree with this assessment and plan, with the exceptions outlined above. I personally went over the labs, imaging, home medications, and prior records, and examined the patient. The case was also reviewed with the attending physician. Please note: this document was transcribed using voice recognition technology; minor inaccuracies may be present. Sarha Wayne DO PGY II Planned Discharge Date 10/06/25 DS: Providers Provider Date of admission: 10/04/25 20:32 Primary care physician: Raúl Loyd MD Admitting Provider: Chantel Izquierdo DO Attending Provider on Admission: Annemarie Nevarez MD Consults: 10/04/25 20:38 Consult to Gastroenterology Stat Comment: Consulting Provider: Debi Shah 10/04/25 21:04 Consult to Cardiology Routine Comment: Consulting Provider: Lakia Muñoz Attending Provider on DC: Annemarie Nevarez MD Discharging Provider: Dylan Almonte DO Anticipated date of discharge: 10/06/25 DS: Diagnosis Problem List Completed Was Problem List Reviewed/Reconciled?: Yes Hospital Course Hospital Course Hospital course: Ms. Schilling is a 65-year-old female with past medical history significant for hypertension, hyperlipidemia, hypothyroidism, aortic mechanical valve replacement on Coumadin presented to the ED on 10/04/25 complaining of fatigue, shortness of breath, dizziness and generalized weakness since (10/01). She had a mechanical valve replaced with Dr. Su in [address] Muñoz as her air defense control officer. Patient does weekly INR checks at home and reported her INR on Sunday (10/02) was 1.2, which was below her goal of INR 2 to 3. She typically she checks in with Dr. Muñoz who gives her an extra dose of warfarin when her INR is between 1.2-1.4 however on Sunday she did not connect with her air defense control officer and decided on her own to take an extra 5 mg of Coumadin. Patient stated last weekend (10/03~10/04) she did notice to dark bowel movements which she attributed to her diet and thought maybe it was something she ate. Of note, patient reported she did have an episode of low hemoglobin approximately around 6.8 but did not require any blood transfusion at that time. Patient did get endoscopy, colonoscopy and capsule endoscopy done over the summer in [facility] with Dr. Schultz and the capsule endoscopy in [place], all of which were inconclusive. In the ED, she was noted to have a Hgb of 4.0. 4pRBC was transfused, and her hemoglobin level had been stable post transfusion. GI was consulted for possible upper GI bleed. Endoscopy performed on 10/05/25 revealed normal esophagus and duodenum. Gastritis was noted. On day of discharge, her hemoglobin was 8.6. At this time, it was deemed appropriate for patient to be discharged home with close follow up with her PCP for hemoglobin level monitoring. She was advised to obtain a capsule endoscopy for further evaluation per GI recommendation. Patient is medically and physically stable for discharge for home. All questions and concerns addressed, plan of care discussed with patient, return precautions given. Diagnosis: #Acute posthemorrhagic anemia #Gastritis #Melena #GI bleed, likely upper #Supratherapeutic INR #Warfarin induced coagulopathy #Valvular heart disease s/p mechanical valve replace #Lower extremity edema #Primary Hypertension #Hyperlipidemia #Hypothyroidism Discharge Plan: * Follow-up with PCP within 1-2 weeks of discharge. * Follow-up with your air defense control officer, Dr. Muñoz, within 1-2 weeks of discharge. * Continue with current WARFARIN dose as recommended by your air defense control officer. Continue with home INR checks per-schedule to maintain an INR 2.0 to 3.0. Your most recent INR from from yesterday morning was 1.5. * Your endoscopy showed no evidence of active bleeding. Your GI doctor had recommended outpatient capsule-endoscopy. Please discuss with your doctor for referral for capsule-endoscopy. * Continue taking medications as prescribed below.Return to the emergency department immediately if you experience any uncontrolled bleeding, a significant blow to the head, or sudden red flag symptoms such as a severe headache, coughing up blood, or black, tarry stools. * Return to Emergency Room if symptoms persist, worsen, or new symptoms develop. Case discussed with my senior resident Dr. Wayne Case discussed with my attending Dr. Geri Almonte, PGY 1 Status at Discharge Overall status at discharge: patient is back to baseline Time Spent with Patient Time attestation: Total time spent providing and/or coordinating discharge services: Time spent: Greater than 30 minutes Exam Vital Signs Temp Pulse Resp BP Pulse Ox O2 Del Method O2 Flow Rate 96.7 F L 59 L 16 134/93 H 95 Room Air 2 10/06/25 08:00 10/06/25 08:00 10/06/25 08:00 10/06/25 08:00 10/06/25 08:00 10/06/25 08:00 10/05/25 18:30 Narrative Exam General: Alert, oriented, in no acute distress. HEENT: Normocephalic, atraumatic. Extraocular movements intact. Neck: Supple, no JVD, no lymphadenopathy or thyroid enlargement. Cardiovascular: Regular rate and rhythm. No murmurs, rubs, or gallops. Respiratory: Clear to auscultation bilaterally. No wheezes, rales, or rhonchi. Normal respiratory effort. Abdomen: Soft, nontender, nondistended. No masses or organomegaly. Musculoskeletal: Full range of motion in all extremities. Skin: Warm, dry, intact. No rashes or lesions. Psychiatric: Calm, cooperative, appropriate mood and affect. Discharge Plan Plan Patient Disposition: HOME (Self Care) Patient condition on transfer: Stable Care Plan Goals: * Follow-up with PCP within 1-2 weeks of discharge. * Follow-up with your air defense control officer, Dr. Muñoz, within 1-2 weeks of discharge. * Continue with current WARFARIN dose as recommended by your air defense control officer. Continue with home INR checks per-schedule to maintain an INR 2.0 to 3.0. Your most recent INR from from yesterday morning was 1.5. * Your endoscopy showed no evidence of active bleeding. Your GI doctor had recommended outpatient capsule-endoscopy. Please discuss with your doctor for referral for capsule-endoscopy. * Continue taking medications as prescribed below.Return to the emergency department immediately if you experience any uncontrolled bleeding, a significant blow to the head, or sudden red flag symptoms such as a severe headache, coughing up blood, or black, tarry stools. * Return to Emergency Room if symptoms persist, worsen, or new symptoms develop. Prescriptions/Referrals Prescriptions/Med Rec: Continued metoprolol succinate [Toprol XL] 50 MG tablet extended release 24 hr 50 mg PO QDAY Qty: 0 warfarin [Coumadin] 7.5 MG tablet 7.5 mg PO DAILY Qty: 0 furosemide 40 mg Tablet 40 mg PO QDAY losartan 50 mg Tablet 50 mg PO QDAY simvastatin 40 mg Tablet 40 mg PO QPM ezetimibe 10 mg tablet 10 mg PO DAILY Patient Comments: TAKE ONE TABLET BY MOUTH EVERY DAY FOR CHOLESTEROL atorvastatin 20 mg tablet 20 mg PO DAILY Patient Comments: TAKE ONE TABLET BY MOUTH EVERY DAY FOR CHOLESTEROL levothyroxine 88 mcg tablet 88 mcg PO .am Patient Comments: TAKE ONE TABLET BY MOUTH EVERY MORNING BEFORE MEALS FOR THYROID aspirin 81 mg tablet,chewable 81 mg PO DAILY Patient Comments: CHEW ONE TABLET BY MOUTH EVERY DAY FOR THE HEART warfarin [Jantoven] 5 mg tablet 5 mg PO DAILY Patient Comments: TAKE ONE TABLET BY MOUTH EVERY DAY Referrals: Raúl Loyd MD [Primary Care Provider] Patient/Caregiver Discharge Instructions Print Language: Mohawk Stand Alone Forms: [employer] Award Info., Patient Portal Info Letter Quality Discharge Quality Measures none
--- NOTE | 2025-10-06 11:04 | PD.IMPROG ---
Documentation for date of: 10/06/25 Subjective Subjective Interval history: Patient evaluated Hemoglobin hematocrit 8.6 and 26.2 Exam Vital Signs Temp Pulse Resp BP Pulse Ox O2 Del Method O2 Flow Rate 96.7 F L 59 L 16 134/93 H 95 Room Air 2 10/06/25 08:00 10/06/25 08:00 10/06/25 08:00 10/06/25 08:00 10/06/25 08:00 10/06/25 08:00 10/05/25 18:30 Objective Labs 10/06/25 03:49 10/06/25 03:49 Labs: Laboratory Results - last 24 hr 10/04/25 10/05/25 10/05/25 20:10 05:47 12:49 WBC RBC Hgb 7.7 L D Hct 23.1 L MCV MCH MCHC RDW Std Deviation Plt Count Neut % (Auto) Lymph % (Auto) [place] % (Auto) Eos % (Auto) Baso % (Auto) Neut # (Auto) Lymph # (Auto) [place] # (Auto) Eos # (Auto) Baso # (Auto) Immature Gran # (Auto) Absolute Nucleated RBC Immature Gran % Nucleated RBC % Smear Path Review Cancelled Sodium 143 Potassium 4.2 Chloride 108 H Carbon Dioxide 26.8 Anion Gap 8 BUN 24 H Creatinine 0.6 Estim Creat Clear Calc 127.2 eGFR > 60 BUN/Creatinine Ratio 40 H Glucose 104 Calculated Osmolality 288 Calcium 8.3 Corrected Calcium 8.9 Phosphorus 3.4 Magnesium Total Bilirubin AST ALT Alkaline Phosphatase Total Protein Albumin 3.2 L Globulin Albumin/Globulin Ratio Blood Type A Positive Antibody Screen NEGATIVE Crossmatch See Detail Blood Bank Wristband ID Yes 10/06/25 03:49 WBC 7.0 RBC 2.80 L Hgb 8.6 L Hct 26.3 L MCV 94 MCH 30.7 MCHC 32.7 RDW Std Deviation 64.0 H Plt Count 177 Neut % (Auto) 65 Lymph % (Auto) 23 [place] % (Auto) 8 Eos % (Auto) 2 Baso % (Auto) 1 Neut # (Auto) 4.6 Lymph # (Auto) 1.6 [place] # (Auto) 0.6 Eos # (Auto) 0.1 Baso # (Auto) 0.0 Immature Gran # (Auto) 0.06 H Absolute Nucleated RBC 0.00 Immature Gran % 1 H Nucleated RBC % 0 Smear Path Review Sodium 145 Potassium 4.6 Chloride 111 H Carbon Dioxide 27.3 Anion Gap 7 BUN 17 Creatinine 0.8 Estim Creat Clear Calc 95.4 eGFR > 60 BUN/Creatinine Ratio 21 H Glucose 110 H Calculated Osmolality 291 Calcium 8.4 Corrected Calcium 9.0 Phosphorus 4.3 Magnesium 1.8 Total Bilirubin 0.7 AST 18 ALT 15 Alkaline Phosphatase 46 Total Protein 5.1 L Albumin 3.3 L Globulin 1.8 L Albumin/Globulin Ratio 1.8 Blood Type Antibody Screen Crossmatch Blood Bank Wristband ID Impressions Impression: Gastritis Anemia blood loss Plan Outpatient capsule endoscopy Assessment & Plan A&P Narrative # Anemia blood loss Agree with blood transfusion Consent obtained for fiberoptic esophagogastroduodenoscopy possible therapeutic intervention under intravenous moderate sedation scheduled no need, for, colonoscopy as she had an active colonoscopy last year other medical problems include Mechanical heart valve on Coumadin Hyperlipidemia Hypothyroidism Essential hypertension Previous history of GI bleed Thank you very much for the opportunity to participate in care of this patient Time Spent With Patient Time: Total time spent is greater than 50% in coordination of care (as documented) at patient's floor/unit and/or counseling patient:
[2025-10-06 12:00] VITALS: BP 130/91; PULSE 68; PULSE 69; RESP 17; TEMP 36; O2SAT 95
[2025-10-06 16:00] VITALS: BP 147/74; PULSE 71; PULSE 74; RESP 22; TEMP 36.6; O2SAT 96
--- NOTE | 2025-10-06 16:17 | PC.SS ---
WHOLESALE MANAGER conducted bedside contact with the patient conduct initial assessment and to discuss discharge planning.? Patient confirmed demographic information.? Patient resides at home with daughter, Hailey Bland.? Patient does not utilize any form of DME to assist with ambulation.? Patient does not utilize home oxygen.? Patient describes the ability to complete ADL?s independently.? Patient identified daughter, Yulia Krishnan ; as medical surrogate decision maker.? Patient?s PCP is Dr. Loyd.? Patient?s report developer is Dr. Hopper.? Patient does not participate with dialysis.? Plan is for the patient to return home at the time of discharge.? Family will provide transportation on behalf of the patient.? No further discharge needs identified by the patient.? No further intervention required at this time, marriage and family social worker will be available to address any further concerns.? Next of Kin: Kathy Bland D/C Plan: Home
--- NOTE | 2025-10-06 17:30 | ESPR_ITS ---
<Statement entered by Lakia Muñoz MD - 10/07/25 09:52> I personally examined the patient and evaluated with resident physician PGY 2 Dr. Baker patient is doing much better now patient's INR pressure was actually normal before she was hospitalized suggesting that patient pathological lesion possible small bowel with bleeding recommended to keep the INR ratio 2.0 discussed with the patient we will monitor every week INR ratio following discharge. Documentation for date of: 10/06/25 Subjective Subjective Interval history: Patient was examined at bedside. She is feeling well, no major complaints or evident bleeding. Today vitals are stable. Hb 8.6 s/p 5 units prbc. EGD last night showed normal esophagus, gastritis, no active bleeding. No plan for colonoscopy at this time as she recently had completed outpatient. INR today is 1.5. Goal INR is 2.0-2.1. Exam Vital Signs Temp Pulse Resp BP Pulse Ox O2 Del Method O2 Flow Rate 97.9 F 71 22 H 147/74 H 96 Room Air 2 10/06/25 16:00 10/06/25 16:00 10/06/25 16:00 10/06/25 16:00 10/06/25 16:00 10/06/25 16:00 10/06/25 12:00 Narrative Exam General: Alert, oriented, in no acute distress. HEENT: Normocephalic, atraumatic. Extraocular movements intact. Neck: Supple, no JVD, no lymphadenopathy or thyroid enlargement. Cardiovascular: Regular rate and rhythm. No murmurs, rubs, or gallops. Respiratory: Clear to auscultation bilaterally. No wheezes, rales, or rhonchi. Normal respiratory effort. Abdomen: Soft, nontender, nondistended. No masses or organomegaly. Musculoskeletal: Full range of motion in all extremities. Skin: Warm, dry, intact. No rashes or lesions. Psychiatric: Calm, cooperative, appropriate mood and affect. Objective Labs 10/06/25 03:49 10/06/25 03:49 Labs: Laboratory Results - last 24 hr 10/04/25 10/06/25 20:10 03:49 WBC 7.0 RBC 2.80 L Hgb 8.6 L Hct 26.3 L MCV 94 MCH 30.7 MCHC 32.7 RDW Std Deviation 64.0 H Plt Count 177 Neut % (Auto) 65 Lymph % (Auto) 23 [place] % (Auto) 8 Eos % (Auto) 2 Baso % (Auto) 1 Neut # (Auto) 4.6 Lymph # (Auto) 1.6 [place] # (Auto) 0.6 Eos # (Auto) 0.1 Baso # (Auto) 0.0 Immature Gran # (Auto) 0.06 H Absolute Nucleated RBC 0.00 Immature Gran % 1 H Nucleated RBC % 0 Sodium 145 Potassium 4.6 Chloride 111 H Carbon Dioxide 27.3 Anion Gap 7 BUN 17 Creatinine 0.8 Estim Creat Clear Calc 95.4 eGFR > 60 BUN/Creatinine Ratio 21 H Glucose 110 H Calculated Osmolality 291 Calcium 8.4 Corrected Calcium 9.0 Phosphorus 4.3 Magnesium 1.8 Total Bilirubin 0.7 AST 18 ALT 15 Alkaline Phosphatase 46 Total Protein 5.1 L Albumin 3.3 L Globulin 1.8 L Albumin/Globulin Ratio 1.8 Blood Type A Positive Antibody Screen NEGATIVE Crossmatch See Detail Blood Bank Wristband ID Yes Quality Measures Quality Measures none Advance care planning discussed with:: patient Assessment & Plan Assessment Current Active Medications: Generic Name Dose Route Start Last Admin Trade Name Freq PRN Reason Stop Dose Admin Acetaminophen 650 mg 10/04/25 20:33 Acetaminophen 325 Mg Tablet PO 11/03/25 20:32 Q6H PRN Fever >101.5 Levothyroxine Sodium 88 mcg 10/05/25 06:00 10/06/25 05:44 Levothyroxine Sodium 88 Mcg Tablet PO 11/04/25 05:59 88 mcg ACBR KIYA Administration Ondansetron HCl 4 mg 10/04/25 20:33 Ondansetron Inj 2 Mg/Ml Inj 2 Ml IVP 11/03/25 20:32 Q6H PRN NAUSEA OR VOMITING Protocol Pantoprazole Sodium 40 mg 10/05/25 09:00 10/06/25 09:46 Pantoprazole Inj 40 Mg Vial IVP 11/04/25 08:59 40 mg BID KIYA Administration Plan Patient is 65 yr female with PMH of hypertension, hyperlipidemia, hypothyroidism, mechanical valve replacement on Coumadin well known to practice. She presented to ED last night after experiencing fatigue, shortness of breath, dizziness and generalized weakness since . Patient is well known to Dr. Muñoz's clinic. Found to have subtheraputic INR and admitted for workup of GI bleed. #GI bleed workup #Supratherapeutic INR #Warfarin induced coagulopathy #Valvular heart disease s/p mechanical aortic valve replacement Patient comes to Dr. Muñoz's clinic weekly for INR check and dose adjustments. Most recent INR check on Sep 24, 2025 was 2.8. Since past few weeks. she as remained at stable number (goal 2.5) without any changes in dose needed. Patient states that she self checked INR at home which was 1.2. Therefore, took an extra dose of 5mg warfarin. She takes 12.5mg warfarin. AV [place] [address] Su. INR on admission was 4.2, PTT 39.8. Hb was 4.0, Hct 13. Was given prothrombin complex concentrate 3,500 unitsx1. She has received total of 5 units PRBC since admission -okay to continue holding warfarin -daily INR -goal INR 2.0 -today INR 1.5. -resume warfarin dose at discharge -follow up in clinic #Primary Hypertension On initial presentation patient was hypotensive with blood pressure of 92/57 Patient takes furosemide 40 mg, metoprolol succinate 50 mg daily, losartan 50 mg daily -resume #Hyperlipidemia -Patient takes atorvastatin 20 mg and ezetimibe 10mg Lipid pannel pending #Hypothyroidism -Patient takes levothyroxine 88 mcg -Resumed home med -TSH 4.68 Primary care team to manage above conditions and ongoing care needs. The patient's management plan was discussed with my attending physician Dr. Muñoz. Silvia Liang, PGY-2
== END 2025-10-06 18:33 | disposition home or self-care (01) | DRG 378 ==
LOC: SERX 20:38 → SERHOLD 20:44 → S2NX 22:32
PROVIDERS: Specialist; Admitting Provider Internal Medicine; Emergency Provider Emergency Medicine; PCP Internal Medicine Hospice and Palliative Medicine; Visit Provider Internal Medicine
PROC: (CPT 43239; principal; 2025-10-05 17:15)
DX: K29.71 Gastritis, unspecified, with bleeding (principal); D62 Acute posthemorrhagic anemia; I10 Essential (primary) hypertension; E78.5 Hyperlipidemia, unspecified; E03.9 Hypothyroidism, unspecified; R79.1 Abnormal coagulation profile; T45.515A Adverse effect of anticoagulants, initial encounter; I95.9 Hypotension, unspecified; Z79.01 Long term (current) use of anticoagulants; Z95.2 Presence of prosthetic heart valve; Z79.890 Hormone replacement therapy; Z79.82 Long term (current) use of aspirin; Z79.899 Other long term (current) drug therapy; Z90.710 Acquired absence of both cervix and uterus
CPT/HCPCS: 36415; 71045; 80053; 80069; 83615; 83735; 83880; 84100; 84443; 84484; 85014; 85018; 85025; 85046; 85610; 86850; 86900; 86901; 86923; 93005; 99283; A4216; A4649; J1200; J1938; J2250; J2470; J3010; J7168; P9016; A9270